=== PATIENT | female | born 1955 | race Caucasian/White ===

== ENCOUNTER → 2018-07-05 | Outpatient (CLI) | payer MEDICARE ==
[~2018-07-05] MED LIST: ATORVASTATIN CA20 MG PO; HYDROCHLOROTH12.5 M1; LISINOPRIL2.5 MG PO; MULTIVITAMINS1 EAC7; [UNRECOGNIZED DRUG - OTHER]
--- NOTE | 2018-07-05 17:43 | Diagnostic Imaging Report ---
Exam: Brain MRI without IV contrast History: Memory loss Comparison studies: None. Technique: Precontrast: Hi resolution Sag T1 with coronal and axial reformats. Axial DWI, T2, T2 flair, gradient echo or SWI Intravenous contrast: None. Findings: Structural lesions: No intra-or extra-axial masses. No hematomas. Atrophy: General: Symmetric and age appropriate. Focal: No significant disproportionate lobar, hippocampal, mesencephalic, pontine, or cerebellar atrophy. 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 A 2 mm T2 hyperintense focus in the left lateral cerebellum may reflect variant sulcus or small lacunar infarct. Basal ganglia: No atrophy or signal abnormalities. Thalami: No signal abnormalities. White matter signal intensity: A few scattered T2 FLAIR hyperintense foci in the supratentorial white matter are nonspecific most compatible with chronic microvascular ischemic changes. Mild T2 FLAIR hyperintense capping along the ventricular margins. Changes are compatible with Fazekas grade 1 white matter changes. Micro hemorrhages: None. Subarachnoid spaces: No signal abnormalities. Ventricles: Normal in size and configuration. No hydrocephalus. Other: Skull: No bone marrow abnormalities. Vessels: Expected flow voids present in the major arteries and dural sinuses.. Sella: Normal in size. No intra-or suprasellar abnormalities. Cranio-cervical junction: No abnormalities. Patent foramen magnum. No Chiari one malformation. Paranasal sinuses and mastoids: No T2 hyperintense mucosal thickening. IMPRESSION: 1. 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 2. Possible small chronic left cerebellar lacunar insult. 3. Mild supratentorial chronic microvascular ischemic changes. 4. No significant generalized or focal brain atrophy. Signed by: Dr. Madhu Haro M.D. on 07/05/2018 5:40 PM
== END ==
LOC: MRI 09:18
PROVIDERS: ATTEND Family Medicine
DX: R41.3 Other amnesia (principal); R51 Headache
CPT/HCPCS: 70551